=== PATIENT | female | born 1960 | race Caucasian/White ===

== ENCOUNTER 2016-07-14 05:21 | Day surgery (SDC) | payer OTHER ==
[2016-07-13 10:12] VITALS: BMI 48.4
[~2016-07-14] VITALS: Ht 157.5 cm; Wt 126.1 kg
[2016-07-14] VITALS (13 sets, daily range): BP systolic 112–150; BP diastolic 60–89; PULSE 83–100; RESP 12–22; Ht 157.5 cm; Wt 126.1 kg
[~2016-07-14 05:21] MED LIST: ALBU8.5H5 INH; BIOT1TAB10 PO; ESTR1.2510 PO; HYDR-762 PO; LEVO88TA42 PO; MORP15TA PO; OMEP40CA6 PO; TOPI-44 PO; ZOLP10TA PO
--- NOTE | 2016-07-14 06:27 | PREOPHP ---
DATE OF ADMISSION: 07/14/2016 HISTORY OF PRESENT ILLNESS: A 56-year-old patient is going to be admitted for right shoulder diagno stic arthroscopy, examination under general anesthesia, cuff repair, possible SLAP repair and acromi oplasty. This patient has been experiencing right shoulder pain for quite a while. Conservative tr eatment resulted in limited benefit to the patient. The patient has requested surgical intervention . PAST MEDICAL HISTORY: Unremarkable. SOCIAL HISTORY: The patient is nonsmoker, nondrinker. FAMILY HISTORY: Unremarkable. PAST SURGICAL HISTORY: Cholecystectomy, appendectomy, . MEDICATIONS: 1. 2. Baclofen. 3. Thyroid medication. 4. Ambien. 5. Hormone pills. ALLERGIES 1. PENICILLIN. 2. KEFLEX. 3. SULFA. REVIEW OF SYSTEMS: Limited to present illness. PAST SURGICAL HISTORY: Knee arthroscopy. PHYSICAL EXAMINATION: VITAL SIGNS: Height of 5 feet 2 inches, weighing 250 pounds. SKIN: Within normal limits. ENT: PERRLA. HEAD AND NECK: Normocephalic. Trachea midline. Bilateral symmetrical carotid pulses. No mass, no bruit, no lymphadenopathy. CARDIOVASCULAR: Normal sinus rhythm. S1, S2 normal. No murmur. No JVD. No peripheral edema. LUNGS: Clear. ABDOMEN: Protuberant. No organomegaly. No mass. Bowel sounds present. GENITOURINARY: Rectal not done, not pertinent to this admission. MUSCULOSKELETAL: Head and neck unremarkable. The shoulder looks symmetrical. Range of motion is a bout 90% especially on the right. There is tenderness over the anterior glenohumeral joint and suba cromial space. Positive impingement sign, positive Desha test. Spine 5% range of motion. There is mild tenderness over the L4-L5 facet joints. MRI of the right shoulder has shown high-grade partial tear of the subscapularis, joint effusion. DIAGNOSES: Rotator cuff tear, possible superior labrum anterior and posterior lesion, possible Bank art lesion. TREATMENT PLAN: The alternatives, risks and benefits discussed. The patient understands possibilit y of complications, infection, bleeding, nerve damage, vascular damage, possibility of deep venous t hrombosis, pulmonary embolism, hypersensitivity and even . [place] result may not be obtained de pending on nature of findings and known or unknown factor or factors. Formal H and P is supposed to be done by PCP. Dictated By: ROLANDO RUSSO/ELIN Conf#: [id number] DID#: [id number]
[2016-07-14] MEDS ORDERED: VANCOMYCIN 1 GM (PMX) 250 ML IVPB SCH (06:30)
[2016-07-14] MEDS ORDERED: PROPOFOL 20 ML ONE (06:33)
[2016-07-14] MEDS ORDERED: GLYCOPYRROLATE 0.4 MG INJ ONE (06:33)
[2016-07-14] MEDS ORDERED: LIDOCAINE 2% (SDV) 5 ML INJ ONE (06:33)
[2016-07-14] MEDS ORDERED: MIDAZOLAM 1 MG/ML 2 ML INJ ONE (06:33)
[2016-07-14] MEDS ORDERED: FENTAnyl 50 MCG/ML VIAL ONE (06:33)
[2016-07-14] MEDS ORDERED: ROCURONIUM 50 MG INJ ONE (06:33)
[2016-07-14] MEDS ORDERED: NEOSTIGMINE 3 MG/3 ML SYRINGE ONE (06:33)
[2016-07-14] MEDS ORDERED: SUCCINYLCHOLINE CHLORIDE 100 MG/5 ML SYG IV ONE (06:33)
[2016-07-14] MEDS ORDERED: DEXAMETHASONE 4 MG/ML 1 ML INJ ONE (06:34)
[2016-07-14] MEDS ORDERED: ROPIVACAINE 0.5 % 30 ML VIAL ONE (06:34)
[2016-07-14] MEDS ORDERED: LIDOCAINE 2%/EPI 30 ML INJ ONE (06:34)
[2016-07-14] MEDS ORDERED: ONDANSETRON 4 MG INJ ONE (06:42)
[2016-07-14] MEDS ORDERED: EPINEPHrine 1 MG/ML 30 ML INJ ONE (06:52)
[2016-07-14] MEDS ORDERED: morphine SULFATE/PF (10 MG/10 ML) INJ ONE (06:52)
[2016-07-14] MEDS ORDERED: MEPERIDINE 25 MG INJ IV PRN (07:00)
[2016-07-14] MEDS ORDERED: morphine (1 MG/ML) 10ML SYRINGE IV PRN ×3 (07:00)
[2016-07-14] MEDS ORDERED: OXYCODONE/ACETAMINOPHEN (5/325) TAB PO PRN ×3 (07:00→12:30)
[2016-07-14] MEDS ORDERED: MIDAZOLAM 1 MG/ML 2 ML INJ IV PRN (07:00)
[2016-07-14] MEDS ORDERED: DIPHENHYDRAMINE 50 MG INJ IV PRN (07:00)
[2016-07-14] MEDS ORDERED: HYDROmorphONE (0.2 MG/ML) 10ML SYG IV PRN ×3 (07:00)
[2016-07-14] MEDS ORDERED: LABETALOL HCL 20MG INJ IV PRN (07:00)
[2016-07-14] MEDS ORDERED: hydrALAzine 20 MG INJ IV PRN (07:00)
[2016-07-14] MEDS ORDERED: EPHEDrine SULFATE 50 MG/5 ML SYG IV PRN (07:00)
[2016-07-14] MEDS ORDERED: ONDANSETRON 4 MG INJ IV PRN ×2 (07:00→12:30)
[2016-07-14] MEDS ORDERED: ATROPINE 1 MG/10 ML SYRINGE IV PRN (07:00)
[2016-07-14] MEDS ORDERED: FENTAnyl 50 MCG/ML VIAL IV PRN ×2 (07:00)
[2016-07-14] MEDS ORDERED: VIT B12 (07:30)
[2016-07-14] MEDS ORDERED: ATEN50TA PO (07:30)
[2016-07-14] MEDS ORDERED: MORP15TA3 PO (07:30)
[2016-07-14] MEDS ORDERED: HYDR-902 PO (07:30)
[2016-07-14] MEDS ORDERED: ACET1TAB40 PO (07:30)
[2016-07-14] MEDS ORDERED: VIT D2 (07:30)
[2016-07-14] MEDS ORDERED: VIT B-6 (07:30)
[2016-07-14] MEDS ORDERED: SULI150T39 PO (07:30)
[2016-07-14] MEDS ORDERED: FOLIC ACID (07:30)
[2016-07-14] MEDS ORDERED: BACL10TA PO (07:30)
[2016-07-14] MEDS ORDERED: EPINEPHrine 1 MG/ML 30 ML INJ IRR ONE (08:25)
[2016-07-14] MEDS ORDERED: PROVENTIL HFA 6.7GM INHALER ONE (12:19)
[2016-07-14] MEDS ORDERED: HYDROCODONE/APAP (5/325) TAB PO PRN (12:30)
[2016-07-14] MEDS ORDERED: ACETAMINOPHEN 500 MG TAB PO PRN (12:30)
--- NOTE | 2016-07-14 17:50 | RADRPT ---
PROCEDURE: Intraoperative fluoroscopy. CLINICAL INDICATION: Intraoperative fluoroscopy during right shoulder arthroscopy. TECHNIQUE: Multiple spot intraoperative fluoroscopic images were provided. The images were review ed on a high-resolution PACS workstation. COMPARISON: None available FINDINGS: Multiple spot intraoperative fluoroscopic views were provided during right shoulder arthroscopy. Th e images demonstrate probe projected over the superior humeral head. The total fluoroscopy time was 3 minutes 1 second. IMPRESSION: 1. Multiple spot intraoperative fluoroscopic views during right shoulder arthroscopy were provided. 2. Please see operative report of the same day for further information. RPTAT: HGAS .Omar Funk MD, MD Date Time Electronically viewed and signed by .Omar Funk MD, on 07/14/2016 17:49 .S/
[2016-07-15] MEDS ORDERED: HYDR-902 PO (03:18)
--- NOTE | 2016-07-15 08:14 | OPR ---
DATE OF OPERATION: 07/14/2016 PREOPERATIVE DIAGNOSES: SLAP lesion, Bankart lesion, rotator cuff tear. POSTOPERATIVE DIAGNOSES: Chronic synovitis, marginal tear type SLAP lesion, also marginal ___ __ anterior labrum and impingement syndrome type acromion, right shoulder. OPERATION PERFORMED: Diagnostic arthroscopy examination under general anesthesia, total synovectomy , debridement of the superior and anterior labrum, acromioplasty of right shoulder. SURGEON: Rolando Montes MD ANESTHESIA: General. BLEEDING: Minimal. COMPLICATIONS: None. OPERATIVE PROCEDURE: The patient was transferred to the operating room and placed on the table in s upine position. Antibiotic was given. A shoulder block was given by the anesthesiologist and gener al anesthesia was induced. The patient was put in left decubitus position. Axillary roll applied. Bony areas were padded. Beanbag was deflated. We used Arthrex shoulder spring during this procedu re with a total of 10 pounds in the subacromial space, a total of 10 pounds in the glenohumeral join t. This was rather a difficult procedure because of the particular type of the anatomy, 250 pounds, and no rounding of the humeral head, and had difficulty getting into the glenohumeral joint posteri hong. Therefore, had to use the C-arm to identify the joint and into the glenohumeral joint posteri hong. Anterolateral port was established and tissue, it took a while to do that too. We had a very difficult time to look at the joint as a whole because of chronic synovitis and a lot of trim amanuel lot of crab meat hanging down from the superior and anterior labrum. It looks like there is some instability as I tried to identify because of damage on the articular surface and also the glenohumeral joint. There was marked synovitis in the joint. Biceps show some , but was relat ively intact. Subscapularis was intact. There was absence of loose body in the subscapularis reces s. Rotator cuff was intact. 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 Total synovectomy was done by coagulation with Arthrocare Bovie and debridem ent was performed by shrinkage and also help of a shaver. The shoulder joint was evacuated of debri s with copious amounts of saline irrigation. We entered the subacromial space. There was downslopi ng of the acromion; therefore, formal acromioplasty was done. Rotator cuff superiorly was intact. Portals were closed with skin lul posteriorly. Because of the anatomy, we had to make more than 1 portal to identify the glenohumeral joint and . A sterile dressing was applied. Shoulder immobilizer was placed on. General anesthesia was stopped. The patient was taken to the recovery r oom in good and stable condition. Dictated By: ROLANDO RUSSO/ELIN Conf#: [id number] DID#: [id number]
== END 2016-07-14 14:30 | disposition home or self-care (01) ==
LOC: SDS 05:21
PROVIDERS: ATTEND Internal Medicine Endocrinology, Diabetes & Metabolism
DX: S43.431D Superior glenoid labrum lesion of right shoulder, subsequent encounter (principal); M75.41 Impingement syndrome of right shoulder; X58.XXXD Exposure to other specified factors, subsequent encounter; M65.811 Other synovitis and tenosynovitis, right shoulder; I10 Essential (primary) hypertension; J45.909 Unspecified asthma, uncomplicated; E66.01 Morbid (severe) obesity due to excess calories; Z68.43 Body mass index [BMI] 50.0-59.9, adult
CPT/HCPCS: 29807; 29826; 73030; J0171; J0330; J1100; J1170; J2250; J2274; J2405; J2710; J2795; J3010; J3370; Z7512; Z7610

== ENCOUNTER 2016-07-14 17:44 | Emergency (ER) | payer OTHER ==
[~2016-07-14] VITALS: Ht 157.5 cm; Wt 122.0 kg
[~2016-07-14 17:44] MED LIST changes: +ACET1TAB40 PO; +ATEN50TA PO; +BACL10TA PO; +FOLIC ACID; +HYDR-902 PO; +MORP15TA3 PO; +SULI150T39 PO; +VIT B-6; +VIT B12; +VIT D2
[2016-07-14 18:22] VITALS: Ht 157.5 cm; Wt 122.0 kg
--- NOTE | 2016-07-14 22:27 | ERD ---
ER Documentation Chief Complaint Date/Time DATE: 07/14/16 TIME: 22:18 Chief Complaint SOB,HISTORY OF ASTHMA.S/P RIGHT SHOULDER PAIN HPI 56-year-old female complaining of shortness of breath 1 day. Patient had undergone rotator cuff repair surgery this morning. The surgery lasted 4-5 hours. She was discharged home at 2 PM. Patient felt short of breath shortly after being discharged home. She was told by the surgeon to return to the ED for checkup. She was given Tylenol 3 for pain. She has not taken any pain medications at home. Patient has a history of seizure disorders, asthma, and anxiety disorder. She used albuterol nebulizer and inhaler at home without improvement in her breathing. She takes Xanax for her anxiety, but had not taken any for several month. ROS All systems reviewed and are negative except as per history of present illness. Medications Home Meds Reported Medications [Folic Acid] No Conflict Check 07/14/16 [Vit B12] No Conflict Check 07/14/16 [Vit D2] No Conflict Check 07/14/16 [Vit B-6] No Conflict Check, 100 MG 07/14/16 Hydrocodone/Acetaminophen ([place] 10-325 Tablet) 1 Each Tablet, 1 EACH PO, TAB 07/14/16 Atenolol* (Atenolol*) 50 Mg Tablet, 50 MG PO DAILY, #30 TAB 07/14/16 Acetaminophen with Codeine (Acetaminophen-Cod #3 Tablet) 1 Each Tablet, 1 TAB PO Q8, #7 TAB 07/14/16 Morphine Sulfate (Morphine Sulfate ER) 15 Mg Tablet.er, 15 MG PO Q12, TAB 07/14/16 Sulindac* (Sulindac*) 150 Mg Tablet, 75 MG PO TID, TAB 07/14/16 Baclofen* (Baclofen*) 10 Mg Tablet, 10 MG PO TID, TAB 07/14/16 Albuterol Sulfate* (Albuterol Sulfate* HFA) 8.5 Gm Hfa.aer.ad, 1-2 PUFF INH Q4H Y for WHEEZING AND SOB, #1 INHALER 06/11/15 Omeprazole* (Omeprazole*) 40 Mg Capsule.dr, 40 MG PO AM, CAP 01/22/15 Topiramate* (Topiramate*) 25 Mg Tablet, 25 MG PO BID, TAB 01/22/15 Levothyroxine Sodium* (Levoxyl*) 88 Mcg Tablet, 88 MCG PO AC BREAKFAST, TAB 01/22/15 Estrogens Conjugated* (Premarin*) 1.25 Mg Tablet, 0.625 MG PO DAILY, TAB 01/22/15 Zolpidem Tartrate* (Ambien*) 10 Mg Tablet, 10 MG PO HS 11/01/12 Morphine Sulfate (MORPHINE SULFATE CR) 15 Mg Tablet.er, 15 MG PO BID 11/01/12 Allergies Allergies: Coded Allergies: Penicillins (Verified Allergy, Unknown, 06/11/15) Sulfa (Sulfonamide Antibiotics) (Verified Allergy, Unknown, 06/11/15) aspirin (Verified Allergy, Unknown, 06/11/15) cephalexin (Verified Allergy, Unknown, 06/11/15) erythromycin base (Verified Allergy, Unknown, 06/11/15) PMhx/Soc History of Surgery: Yes Anesthesia Reaction: No Hx Neurological Disorder: No Hx Respiratory Disorders: Yes Hx Cardiac Disorders: Yes Hx Psychiatric Problems: No Hx Miscellaneous Medical Probl: No Hx Alcohol Use: Yes (OCC) Hx Substance Use: No Hx Tobacco Use: No Physical Exam Vitals Vital Signs Date Time Temp Pulse Resp B/P Pulse Ox O2 Delivery O2 Flow Rate FiO2 07/15/16 00:48 89 18 99 21 07/14/16 18:22 98.7 103 18 138/68 98 Physical Exam General impression: Well-developed, well-nourished. Alert, oriented, in no acute distress Head: Normocephalic, atraumatic. Neck: Supple, nontender. No lymphanopathy. No nuchal rigidity. Respiration: Normal respiratory effort. Lungs clear to auscultate bilaterally. No wheezes, rales or rhonchi. Cardiovascular: Regular rhythm, slight tachycardia. No murmurs or extra heart sounds. Anterior chest wall tender to palpation on the right side. Abdomen: Abdomen normal to inspection. Nontender. No masses or organomegaly. Bowel sounds normal. Back: Normal to inspection. No midline spine tenderness. No CVA tenderness. Extremities: Dressing noted on the right shoulder, right upper extremity immobilized. Neuro: Mental status normal, speech normal. [employer] grossly intact. Skin: Slight pallor. Normal turgor. No rash or lesions. Psych: Normal mood and affect. Result Diagram: 07/14/16224907/14/162249 Results 24 hrs Laboratory Tests Test 07/14/16 22:50 Activated Partial Thromboplast Time 30.3Sec Anion Gap 18 Basophils # 0.010^3/ul Basophils % 0.2% Blood Morphology Comment Blood Urea Nitrogen 9mg/dl Calcium Level 8.8mg/dl Carbon Dioxide Level 22mmol/L Chloride Level 105mmol/L Creatinine 0.66mg/dl Eosinophils # 0.010^3/ul Eosinophils % 0.1% Glucose Level 123mg/dl Hematocrit 39.1% Hemoglobin 13.1g/dl INR International Normalized Ratio 0.97 Lymphocytes # 0.810^3/ul Lymphocytes % 8.7% Mean Corpuscular Hemoglobin 27.5pg Mean Corpuscular Hemoglobin Concent 33.6g/dl Mean Corpuscular Volume 81.8fl Mean Platelet Volume 8.4fl Monocytes # 0.210^3/ul Monocytes % 2.4% Neutrophils # 8.510^3/ul Neutrophils % 88.6% Nucleated Red Blood Cells # 0.010^3/ul Nucleated Red Blood Cells % 0.0/100WBC Platelet Count 37808^3/UL Potassium Level 4.1mmol/L Prothrombin Time 12.9Sec Prothrombin Time Ratio 1.0 Red Blood Count 4.7810^6/ul Red Cell Distribution Width 13.4% Sodium Level 141mmol/L Troponin I < 0.012ng/ml White Blood Count 9.610^3/ul Current Medications Medications (Trade) Dose Ordered Sig/Noris Route PRN Reason Start Time Stop Time Status Last Admin Dose Admin Lorazepam (Ativan) 1 mg ONCE ONCE PO 07/14/16 22:30 07/14/16 22:31 DC 07/14/16 22:29 Acetaminophen/ Hydrocodone Bitart ([place] (5/325)) 1 tab ONCE ONCE PO 07/14/16 22:30 07/14/16 22:31 DC 07/14/16 22:29 Albuterol (Proventil 0.5% (Neb)) 2.5 mg ONCE STAT N 07/15/16 00:37 07/15/16 00:39 DC 07/15/16 00:44 Ipratropium [place] (Atrovent 0.02% (Neb)) 0.5 mg ONCE ONCE HHN 07/15/16 01:00 07/15/16 01:01 DC 07/15/16 00:44 Morphine Sulfate (morphine) 8 mg ONCE ONCE IV 07/15/16 02:00 07/15/16 02:01 DC 07/15/16 02:07 Procedures/MDM Patient is placed on monitor. [place] 5/325, and Ativan 1 mg p.o. given to the patient in the ED. Patient reports no change in her pain and sense of shortness of breath after the medication. Nebulizer treatment with albuterol and Atrovent also given to the patient. Again, patient reports no improvement in her shortness of breath. EKG: Normal sinus rhythm with ventricular rate 87 bpm, normal axis. No ST segment elevation or depression. No ectopic beats. No QT prolongation. No other EKG abnormalities. EKG read by Dr. Barr. CBC and BMP are unremarkable. Troponin is negative. Chest x-ray showed no evidence of active cardiopulmonary disease. Dr. Barr is consulted for the patient. I this time, patient's oxygen saturation fluctuates between 99% down to 93% and back. Her heart rate is around 103 bpm. Patient is given morphine 8 mg IV for pain. Patient reports improvement in pain after morphine. But she still feels a burning tightness sensation in her chest. CT angiogram of the chest is ordered to rule out PE. CTA pending at this time. Patient's care will be turned over to Charisma Milan NP pending CTA results. Patient's condition at this time: Stable. GUADALUPE CACERES NP Jul 14, 2016 22:27
[2016-07-14] MEDS ORDERED: LORAZEPAM 1 MG TAB PO ONE (22:30)
[2016-07-14] MEDS ORDERED: HYDROCODONE/APAP (5/325) TAB PO ONE (22:30)
[2016-07-14 23:26] LABS: BASOPHILS % 0.2 % (0.0-2.0); EOSINOPHILS % 0.1 % (0.0-7.0); HEMATOCRIT 39.1 % (37.0-47.0); HEMOGLOBIN 13.1 g/dl (12.0-16.0); LYMPHOCYTES # 0.8 10^3/ul (0.8-2.9); LYMPHOCYTES % 8.7 % (15.0-51.0); MEAN CORPUSCULAR HEMOGLOBIN 27.5 pg (29.0-33.0); MEAN CORPUSCULAR HGB CONC 33.6 g/dl (32.0-37.0); MEAN CORPUSCULAR VOLUME 81.8 fl (82.0-101.0); MEAN PLATELET VOLUME 8.4 fl (7.4-10.4); MONOCYTE # 0.2 10^3/ul (0.3-0.9); MONOCYTES % 2.4 % (0.0-11.0); NEUTROPHIL # 8.5 10^3/ul (1.6-7.5); NEUTROPHILS % 88.6 % (39.0-77.0); PLATELET COUNT 216 10^3/UL (140-440); RED BLOOD COUNT 4.78 10^6/ul (4.20-5.40); RED CELL DISTRIBUTION WIDTH 13.4 % (11.5-14.5); UNCORRECTED WBC 9.6 10^3/ul (4.8-10.8); WHITE BLOOD COUNT 9.6 10^3/ul (4.8-10.8)
[2016-07-14 23:32] LABS: CHLORIDE 105 mmol/L (97-110); SODIUM 141 mmol/L (135-144)
[2016-07-14 23:33] LABS: CONDITION 1; LH ANALYZER COMMENTS 1; POTASSIUM 4.1 mmol/L (3.5-5.1)
[2016-07-14 23:35] LABS: ANION GAP 18 (8-16); CARBON DIOXIDE 22 mmol/L (21-31); CREATININE 0.66 mg/dl (0.44-1.00)
[2016-07-14 23:36] LABS: BLOOD UREA NITROGEN 9 mg/dl (7-20); CALCIUM 8.8 mg/dl (8.4-10.2); GLUCOSE 123 mg/dl (70-220)
[2016-07-14 23:51] LABS: TROPONIN-I < 0.012 ng/ml (0.00-0.12)
--- NOTE | 2016-07-14 23:53 | RADRPT ---
PROCEDURE: CHEST - 1 VIEW CLINICAL INDICATION: 56-year-old female with shortness of breath following right shoulder surgery. TECHNIQUE: A single frontal AP semi-erect view of the chest was performed portably. The images we re reviewed on a PACS workstation. COMPARISON: Chest x-ray January 22, 2015. FINDINGS: The cardiomediastinal silhouette is within normal limits. There is mild elevation right hemidiaphra gm. There is no evidence for an infiltrate. There is no evidence for congestive heart failure. The re is no evidence for pneumothorax. Multiple skin clips are seen within the right shoulder region. IMPRESSION: 1. No evidence for active cardiopulmonary disease. 2. Skin clips right shoulder region. .Abhijeet Burger MD, MD Date Time Electronically viewed and signed by .Abhijeet Burger MD, on 07/14/2016 23:53 .M/
[2016-07-15 00:16] LABS: INR 0.97; PROTIME 12.9 Sec (12.2-14.2)
[2016-07-15 00:17] LABS: PARTIAL THROMBOPLASTIN TIME 30.3 Sec (25.0-35.0)
[2016-07-15] MEDS ORDERED: ALBUTEROL 0.5% (NEB) 2.5 MG/0.5 ML AMP HHN STA (00:37)
[2016-07-15] MEDS ORDERED: IPRATROPIUM (NEB) 0.5 MG/2.5 ML AMP HHN ONE (01:00)
[2016-07-15] MEDS ORDERED: morphine 10 MG INJ IV ONE (02:00)
[2016-07-15] MEDS ORDERED: SOD CHLORIDE 0.9% 100 ML ONE (02:47)
[2016-07-15] MEDS ORDERED: IOHEXOL 300MG/ML 150 ML BTL ONE (02:47)
[2016-07-15] MEDS ORDERED: HYDR-902 PO (03:18)
--- NOTE | 2016-07-15 03:20 | QN ---
Documentation Comment Patient was signed out to me by Cindi Valenzuela NP pending CT and abnormal results, upon bringing the patient to the CT scan, patient unable to fit into the CT scan machine since she is unable to move her right elbow and right arm and shoulder because of the surgery. I informed Dr. Barr, or attending physician regarding this, he came to the bedside and reevaluated the patient, at this time , patient only feels some burning sensation in the midchest area up and Dr. Barr's evaluation, patient is stable to go home with outpatient follow-up and reevaluation by primary care doctor within 1-2 days strict return to ER precautions for any worsening symptoms. Oxygenation is normal, heart rate is stable at this time. Pain is improved. As per Dr. Barr recommendation, patient will be given [place] for pain. As per discussion with Dr. Barr, low risk for pulmonary embolism at this time since patient's heart rate is normal and oxygenation is normal and patient's symptoms has improved. JIMMIE ALANIZ NP Jul 15, 2016 03:20
[2016-07-15 03:51] VITALS: BP 116/86; PULSE 85; RESP 20
== END 2016-07-15 03:51 | disposition home or self-care (01) ==
LOC: FTE 17:44
DX: R06.02 Shortness of breath (principal); I10 Essential (primary) hypertension; J45.901 Unspecified asthma with (acute) exacerbation
CPT/HCPCS: 71010; 80048; 84484; 85025; 85610; 85730; 93005; 94664; J2270; Q9967; Z7610; 96374